=== PATIENT | female | born 1940 | race Caucasian/White ===

== ENCOUNTER 2016-06-25 15:52 | Inpatient (IN) | payer OTHER ==
[~2016-06-25] VITALS: Ht 165.1 cm; Wt 112.6 kg
--- NOTE | ~2016-06-25 | HC ---
[facility] [place] [address] CONSULTATION Name: THADDEUS IYER Room #: 423-1 ADM IN M.R.#: [id number] Admission: 06/25/16 Attend Phys: Cora Lobo MD Discharge: Date of : 44 Report #: [id number] THIS REPORT FOR: //name// CC: BANDAR Dias ADDENDUM: I was able to obtain an echo report, did not see this initially, was obtained here in the hospital. There is moderate aortic valve stenosis that is consistent with the murmur that I heard on physical exam, measuring 1.2 with a peak gradient of 40 and a mean of 26. This would be moderate aortic valve stenosis by definition. Mild diastolic dysfunction. I suspect this also contributes to a mild heart failure, more of a diastolic valvular volume issue here. This valve was not tight enough to entertain nor would she be of a candidate at this point for any valve replacement, but not currently indicated. May try to get more aggressive with the diuresis. We will give one dose of IV Lasix tonight and I continued with the p.o., reevaluate in the a.m. with the chest x-ray. <ELECTRONICALLY SIGNED> By: Tico Gruber MD, [facility] 06/29/16 0815 1845 2356 Tico Gruber MD, FACC /nt
--- NOTE | ~2016-06-25 | EKG ---
[place] [address] [facility] [place] [address] ELECTROCARDIOGRAM REPORT Name: THADDEUS IYER Room #: 423-1 ADM IN M.R.#: [id number] Admission: 06/25/16 Attend Phys: Yury Dias DO Discharge: Date of : 42 Report #: [id number] THIS REPORT FOR: //name// [facility] Test Date: 2016-06-26 Test Time: 07:25:47 Pat Name: THADDEUS IYER Department: Room: [facility] Gender: F Biological Inspector: madhu soni : 1940 Requested By: Esther Ku Order Number: [id number] MD: Edwar Freeman Measurements Intervals [place] Rate: 73 P: 33 [place]: 160 QRS: -5 QRSD: 86 T: 17 QT: 438 QTc: 483 Interpretive Statements Sinus rhythm Nonspecific T wave abnormality Compared to ECG 09/24/2007 01:18:55 Sinus bradycardia no longer present Electronically Signed On 06-26-2016 8:28:09 CDT by Edwar Freeman [email or web address] <ELECTRONICALLY SIGNED> By: Edwar Freeman MD, [facility] 06/26/16 0828 4 4 Edwar Freeman MD, [facility] /EPI
--- NOTE | ~2016-06-25 | S ---
[facility] [place] [address] SURGICAL PATH RPT PROCEDURE Name: THADDEUS HOWELL Room #: 423-1 DIS IN M.R.#: [id number] Admission: 06/25/16 Date of : 44 Discharge: 06/30/16 Report #: [id number] Path Case #: [id number] PATHOLOGY REPORT COLLECTION DATE: 06/30/2016 RECEIVED DATE: 06/30/2016 SUBMITTING PHYS: Dr. Samir Chaidez OTHER PHYS: Dr. Cora Stovall SPECIMEN(S) RECEIVED: A.Duodenal bx B.Distal esophagus bx C.Mid esophagus bx * * * * * * * * * * * * FINAL DIAGNOSIS: A. "Duodenal bx," biopsy: - Small bowel / duodenal mucosa with mild reactive changes including prominent Chance's glands; no evidence of celiac sprue. B. "Distal esophagus bx," biopsy: - Esophageal squamous mucosa with mild reactive changes; no significant inflammation, including eosinophils, present. C. "Mid esophagus bx," biopsy: - Esophageal squamous mucosa with mild reactive changes; no significant inflammation, including eosinophils, present. COMMENT: Clinical and endoscopic correlation is recommended. (KAYYW:; d/t: 07/01/16) PATHOLOGIST: Suri Carty M.D. REPORT ELECTRONICALLY SIGNED BY: Suri Carty M.D. DATE/TIME: 07/01/2016 21:56 * * * * * * * * * * * * GROSS PATHOLOGY: A. Received in formalin labeled "Thaddeus Howell, duodenal biopsy, R/O sprue," are two segments of pacheco soft tissue measuring 0.5 x 0.5 x 0.1 cm in aggregate dimensions and ranging from 0.3 to 0.5 cm in maximum dimension. The specimen is submitted entirely in cassette A1. B. Received in formalin labeled "Thaddeus Howell, distal esophagus, R/O eosinophilic esophagitis," are three segments of pacheco soft tissue measuring 0.8 x 0.7 x 0.1 cm in aggregate dimensions and ranging from 0.3 to 0.4 cm in maximum dimension. The specimen is submitted [address] [address] SURGICAL PATH RPT PROCEDURE Name: THADDEUS HOWELL Room #: 423-1 DIS IN M.R.#: [id number] Admission: 06/25/16 Date of : 44 Discharge: 06/30/16 Report #: [id number] Path Case #: [id number] entirely in cassette B1. C. Received in formalin labeled "Thaddeus Howell, mid esophagus biopsy, R/O eosinophilic esophagitis," are two segments of pacheco soft tissue measuring 0.5 x 0.5 x 0.1 cm in aggregate dimensions and ranging from 0.3 to 0.5 cm in maximum dimension. The specimen is submitted entirely in cassette C1. (CAA; 06/30/2016) CLINICAL HISTORY: Abdominal pain, dysphagia A: R/O sprue B and C: R/O eosinophilic esophagitis INITIAL CPT CODE(S): A; 24645 B; 34232 C; 49408 Professional services performed by [facility] at [facility] [address], [place] [address] Technical services performed by [facility] at [address] [place] [address], [facility] [address], [place] [address]. [facility] [address] [place] [address] PHONE: [phone] DIRECTOR: Félix Bunch M.D. * * * END OF REPORT * * *
--- NOTE | ~2016-06-25 | HC ---
[facility] [place] [address] CONSULTATION Name: THADDEUS IYER Room #: 423-1 ADM IN M.R.#: [id number] Admission: 06/25/16 Attend Phys: Cora Lobo MD Discharge: Date of : 42 Report #: [id number] THIS REPORT FOR: //name// CC: BANDAR Dias HISTORY OF PRESENT ILLNESS: The patient is a 75-year-old female, who I was asked to evaluate for progressive dyspnea, shortness of breath, and edema. Question of heart failure, acute systolic failure. Seen by Dr. Stovall, but no prior cardiac issues. No prior nurse coordinator that she has ever seen. Admitted here with hypertensive issues and had been hospitalized at [place] and then back in the [facility], tried to go home and then apparently did not do well. Progressive hypertension, lower extremity edema, had difficulty ambulating with a walker, some intermittent chills. She had been compliant with the medications is my understanding. Perhaps not as compliant with diet, but I do not have any imaging studies of her cardiac. There has been no echo. In fact, I do not see a chest x-ray currently. Has had this edema and weight gain, however. HOME MEDICATIONS: Appear to have been hydrocodone, baby aspirin, gabapentin, Lasix 40, levothyroxine, insulin, lovastatin 20, metformin 1000 b.i.d., metoprolol 12.5 b.i.d., Protonix, Zofran, losartan 50, Colace, and potassium 10. PAST MEDICAL HISTORY: Positive for hypertension, diabetes for 12 to 15 years, renal insufficiency, chronic edema, arthritis, generalized debilitation with hip, knee, and back pain, tonsillectomy, appendectomy, hernia repair, , parathyroidectomy, left knee surgery, depression. FAMILY HISTORY: Positive for premature coronary artery disease. Two brothers had coronary issues in their 60s. One brother just had stents placed. SOCIAL HISTORY: She is , no current alcohol or tobacco. Was never a smoker. REVIEW OF SYSTEMS: Negative except for stated above with some progressive weakness and arthritic issues. Otherwise negative. Some intermittent bowel constipation issues. LABORATORY DATA: Creatinine 1.6, potassium 4.3, glucose 205, magnesium 1.7, total protein 6.3. BNP 1140. H and H 10.6 and 32.3, white count was 10, sed rate 29, rheumatoid factor negative. PHYSICAL EXAMINATION: GENERAL: She is in no distress. VITAL SIGNS: Blood pressure 160/78, pulse 70s. HEENT: Eyes reveal xanthelasmas. Pharynx is clear. NECK: Shows preserved upstrokes, question of some trace of JVD. LUNGS: Were clear. Diminished at the bases, few fine basilar crackles. [facility] [address] [place] [address] CONSULTATION Name: THADDEUS IYER Room #: 423-1 ADM IN M.R.#: [id number] Admission: 06/25/16 Attend Phys: Cora Lobo MD Discharge: Date of : 42 Report #: [id number] CARDIOVASCULAR: Regular rate and rhythm, S1, S2. There is a faint holosystolic murmur. ABDOMEN: Soft, obese, nontender. EXTREMITIES: Revealed 2+ pedal edema, 1+ in the lower extremities. SKIN: Warm and dry. There are some eczematous changes. I cannot palpate the distal pulses. NEUROLOGIC: Intact. MUSCULOSKELETAL: Valgus deformity of the knee. She does not ambulate. ASSESSMENT: 1. Hypertension, improved. 2. Question of moonn-au-yqqrkih systolic failure, failure possibly mixed, systolic and diastolic. I will obtain echo Doppler. 3. Reflux. 4. Chest pain. 5. Degenerative joint disease, chronic pain. 6. Mild anemia. 7. Chronic kidney disease. RECOMMENDATIONS: I agree with the current p.o. Lasix. We will obtain chest x-ray, echo Doppler. Continue with blood pressure control. However, we will wait for medications currently until I am able to evaluate the echo and valvular status. There is also a murmur of unclear etiology, relative fluid and sodium restriction here, generalized debilitated state seemed to benefited from OT/PT and physical therapy, possibly rehab, but it sounds like she has already had a significant rehabilitation ____ unstable cardiac situation here, but we will obtain echo and chest x-ray in the a.m. and follow up with you. Thank you for asking me to assist in the care of this patient. <ELECTRONICALLY SIGNED> By: Tico Gruber MD, FACC 06/29/16 0815 1841 2356 Tico Gruber MD, FACC /nt
--- NOTE | ~2016-06-25 | 2DMMODE ---
[facility] [address] [place] [address] 2 D/M-MODE ECHOCARDIOGRAM Name: IYERTHADDEUS F Room #: 423-1 ADM IN .R.#: [id number] Admission: 06/25/16 Attend Phys: Yury Dias, Discharge: Date of : 44 Date of Service: 06/26/16 1446 Report #: [id number] THIS REPORT FOR: //name// APPROVED REPORT Study performed: 06/26/2016 09:59:30 EXAM: Comprehensive 2D, Doppler, and color-flow Echocardiogram Patient Location: Bedside Room #: 423 Blood Pressure: 135/67 mmHg HR: 74 bpm Other Information Study Quality: Adequate Indications Congestive Heart Failure Diabetes Hypertension/HDD LE Edema 2D Dimensions LVEF(%): 48.91 (>50%) IVSd: 13.63 (7-11mm) LVOT Diam: 20.00 (18-24mm) LVDd: 49.11 mm PWd: 13.69 (7-11mm) Ascending Aorta: 30.27 mm LVDs: 36.95 (25-40mm) Aortic Root: 30.95 mm Little's LVEF: 48.91 % Volumes Left Atrial Volume (Systole) Single Plane 4CH: 71.84 mL Single Plane 2CH: 59.65 mL LA ESV Index: 35.00 mL/m2 Aortic Valve AoV Peak Rogelio.: 3.20 m/s AO Peak Gr.: 40.92 mmHg LV Max P.46 mmHg AO Mean Gr.: 26.26 mmHg LV Mean P.21 mmHg LV Max: 1.22 m/s AO V2 VTI: 772.73 mm LV Mean: 0.84 m/s XUAN (VTI): 1.20 cm2 LV V1 VTI: 268.28 mm [facility] [place] [address] 2 D/M-MODE ECHOCARDIOGRAM Name: THADDEUS IYER Room #: 423-1 ADM IN M.R.#: [id number] Admission: 06/25/16 Attend Phys: Yury Dias, Discharge: Date of : 42 Date of Service: 06/26/16 1446 Report #: [id number] SV (LVOT): 88.23 mL Mitral Valve E/A Ratio: 0.8 MV Decel. Time: 162.59 ms MV E Max Rogelio.: 0.93 m/s MV A Rogelio.: 1.11 m/s MV PHT: 47.15 ms Pulmonary Valve PV Peak Rogelio.: 1.47 m/s PV Peak Gr.: 8.71 mmHg Pulmonary Vein P Vein S: 49.2 m/s P Vein D: 51.5 m/s P Vein A Dur.: 30.0 m/s PVa Duration: 125 Tricuspid Valve TR Peak Rogelio.: 3.40 m/s RAP Estimate: 10.00 mmHg TR Peak Gr.: 46.00 mmHg PA Pressure: 56.00 mmHg Left Ventricle The left ventricle is normal size. There is normal LV segmental wall motion. Mild to moderate concentric left ventricular hypertrophy. Left ventricular systolic function is normal. The left ventricular ejection fraction is within the normal range. LVEF is 60-65%. Grade I - abnormal relaxation pattern. Right Ventricle The right ventricle is normal size. The right ventricular systolic function is normal. Atria Left atrium is mildly dilated. Right atrium is mildly dilated. Aortic Valve Aortic valve is calcified. Trace aortic regurgitation. Moderate aortic stenosis. Mitral Valve There is mitral annular calcification. Trace mitral regurgitation. No evidence of mitral valve stenosis. Tricuspid Valve [address] [address] 2 D/M-MODE ECHOCARDIOGRAM Name: THADDEUS IYER Room #: 423-1 [facility] IN M.R.#: [id number] Admission: 06/25/16 Attend Phys: Yury Dias, Discharge: Date of : 44 Date of Service: 06/26/16 1446 Report #: [id number] The tricuspid valve is normal in structure. There is no tricuspid valve regurgitation noted. Pulmonic Valve The pulmonary valve is normal in structure. Trace to mild pulmonic regurgitation. Great Vessels The aortic root is normal in size. IVC is dilated and collapses >50% with inspiration. Pericardium There is no pericardial effusion. <Conclusion> The left ventricle is normal size. LVEF is 60-65%. Mild to moderate concentric left ventricular hypertrophy. Left atrium is mildly dilated. Right atrium is mildly dilated. Aortic valve is calcified. Trace aortic regurgitation. Moderate aortic stenosis. There is mitral annular calcification. The tricuspid valve is normal in structure. The pulmonary valve is normal in structure. Trace to mild pulmonic regurgitation. <ELECTRONICALLY SIGNED> By: Po Cooper MD 06/26/16 1446 1446 1446 Po Cooper MD /INF
[2016-06-25 19:00] VITALS: BP 208/119
[2016-06-25 21:09] VITALS: BP 193/90
[2016-06-25] MEDS ORDERED: ASPIRIN EC81 M1 PO (21:17)
[2016-06-25] MEDS ORDERED: HYDROCODONE-APA1 TA1 PO (21:20)
[2016-06-25] MEDS ORDERED: NEURONTIN 300300 M1 PO (21:23)
[2016-06-25] MEDS ORDERED: LASIX 40 MG TAB40 MG PO (21:26)
[2016-06-25] MEDS ORDERED: LEVOTHYROXIN0.075 MG PO (21:26)
[2016-06-26] MEDS ORDERED: LANTUS SUBQ (01:54)
[2016-06-26] MEDS ORDERED: LOVASTATIN 20 M20 MG PO (01:55)
[2016-06-26] MEDS ORDERED: METFORMIN HCL500 MG PO (01:56)
[2016-06-26] MEDS ORDERED: LOPRESSOR25 PO (01:57)
[2016-06-26] MEDS ORDERED: PROTONIX40 M1 PO (01:58)
[2016-06-26] MEDS ORDERED: ONDANSETRON HCL4 M2 PO (01:59)
[2016-06-26] MEDS ORDERED: COZAAR 50 MG TA50 M2 PO (02:00)
[2016-06-26] MEDS ORDERED: COLACE100 MG PO (02:01)
[2016-06-26] MEDS ORDERED: KLOR-CON 1010 MEQ PO (02:02)
[2016-06-26 04:30] VITALS: BP 152/83
[2016-06-26 05:02] LABS: ABSOLUTE NEUTROPHILS 5.5 thou/uL (1.4-8.2); BASOPHILS 0.4 % (0.0-2.0); EOSINOPHILS 3.3 % (0.0-3.0); HEMATOCRIT 32.3 % (37.0-47.0); HEMOGLOBIN 10.6 gm/dL (12.0-15.0); LYMPHOCYTES 34.7 % (24.0-44.0); MCH 27.8 pg (26.0-34.0); MCHC 32.7 g/dL (28.0-37.0); MCV 85.1 fL (80.0-100.0); PLATELET COUNT 252 thou/uL (150-400); POLYS 52.6 % (36.0-66.0); RDW 16.2 % (10.5-14.5); WBC 10.4 thou/uL (4.0-11.0)
[2016-06-26 05:08] LABS: MANUAL DIFF NO
[2016-06-26 05:18] LABS: ALBUMIN 2.7 g/dL (3.4-5.0); CALCIUM 8.3 mg/dL (8.5-10.1); CREATININE 1.5 mg/dL (0.6-1.0); MAGNESIUM 1.7 mg/dL (1.8-2.4); POTASSIUM 3.9 mmol/L (3.5-5.1); TOTAL BILIRUBIN 0.4 mg/dL (<0.1-1.0); TOTAL PROTEIN 6.3 g/dL (6.4-8.2); URIC ACID* 8.7 mg/dL (2.6-7.2)
[2016-06-26 07:27] VITALS: BP 135/67
[2016-06-26 15:05] VITALS: BP 142/52
[2016-06-26 20:00] VITALS: BP 138/64
[2016-06-27 04:00] VITALS: BP 140/54
[2016-06-27 07:28] VITALS: BP 149/71
[2016-06-27 15:08] LABS: CALCIUM 7.8 mg/dL (8.5-10.1); CREATININE 1.6 mg/dL (0.6-1.0); POTASSIUM 4.3 mmol/L (3.5-5.1)
[2016-06-27 15:55] VITALS: BP 159/78
[2016-06-27 21:00] VITALS: BP 152/58
[2016-06-28 04:30] VITALS: BP 149/60
[2016-06-28 06:07] LABS: CALCIUM 8.5 mg/dL (8.5-10.1); CREATININE 1.4 mg/dL (0.6-1.0); POTASSIUM 3.8 mmol/L (3.5-5.1)
[2016-06-28 07:53] VITALS: BP 138/48
[2016-06-28 09:10] LABS: CREATININE (ALB/CR) 39.6 mg/dL (Not Estab.); MICROALB:CREAT 130.8 (0.0-30.0); MICROALBUMIN-RND URINE 51.8 ug/mL (Not Estab.)
[2016-06-28 16:21] VITALS: BP 171/67
[2016-06-28 20:00] VITALS: BP 159/88
[2016-06-29 04:00] VITALS: BP 151/69
[2016-06-29 06:01] LABS: CALCIUM 8.3 mg/dL (8.5-10.1); CREATININE 1.4 mg/dL (0.6-1.0); POTASSIUM 3.9 mmol/L (3.5-5.1)
[2016-06-29 16:21] VITALS: BP 188/74
[2016-06-29 20:00] VITALS: BP 152/65
[2016-06-30 03:47] VITALS: BP 144/56
[2016-06-30 09:30] VITALS: BP 158/103
[2016-06-30 11:20] VITALS: BP 151/67
[2016-06-30 12:07] LABS: GLYCOHEMOGLOBIN (HGB A1C) 7.1 % (4.8-5.6)
[2016-06-30 12:48] VITALS: BP 151/67
[2016-06-30 14:32] VITALS: BP 151/67
== END 2016-06-30 15:50 | disposition home health service (06) | DRG 291 ==
LOC: 4E 15:52
PROVIDERS: Internal Medicine Endocrinology, Diabetes & Metabolism; Nurse Practitioner
PROC: 0D738ZZ Dilation of Lower Esophagus, Via Natural or Artificial Opening Endoscopic (ICD-10-PCS; principal; 2016-06-30)
PROC: 0DB98ZX Excision of Duodenum, Via Natural or Artificial Opening Endoscopic, Diagnostic (ICD-10-PCS; principal; 2016-06-30)
PROC: 0DB38ZX Excision of Lower Esophagus, Via Natural or Artificial Opening Endoscopic, Diagnostic (ICD-10-PCS; principal; 2016-06-30)
PROC: 0DB28ZX Excision of Middle Esophagus, Via Natural or Artificial Opening Endoscopic, Diagnostic (ICD-10-PCS; principal; 2016-06-30)
DX: I13.0 Hypertensive heart and chronic kidney disease with heart failure and stage 1 through stage 4 chronic kidney disease, or unspecified chronic kidney disease (principal); I50.33 Acute on chronic diastolic (congestive) heart failure; E43 Unspecified severe protein-calorie malnutrition; Z68.41 Body mass index [BMI] 40.0-44.9, adult; K21.0 Gastro-esophageal reflux disease with esophagitis; M19.90 Unspecified osteoarthritis, unspecified site; E89.2 Postprocedural hypoparathyroidism; F32.9 Major depressive disorder, single episode, unspecified; D64.9 Anemia, unspecified; N18.9 Chronic kidney disease, unspecified; E11.22 Type 2 diabetes mellitus with diabetic chronic kidney disease; R13.10 Dysphagia, unspecified; I35.0 Nonrheumatic aortic (valve) stenosis; M10.9 Gout, unspecified; E78.5 Hyperlipidemia, unspecified; G89.29 Other chronic pain; M81.0 Age-related osteoporosis without current pathological fracture; E66.9 Obesity, unspecified; Z91.81 History of falling; Z90.49 Acquired absence of other specified parts of digestive tract; Z79.4 Long term (current) use of insulin; Z79.82 Long term (current) use of aspirin; Z79.899 Other long term (current) drug therapy; Z88.6 Allergy status to analgesic agent; Z88.8 Allergy status to other drugs, medicaments and biological substances; Z82.49 Family history of ischemic heart disease and other diseases of the circulatory system
CPT/HCPCS: 10183; 62110; 62900; 70005

== ENCOUNTER 2017-04-07 23:10 | Inpatient (IN) | payer OTHER ==
[~2017-04-07] VITALS: Ht 165.1 cm; Wt 110.7 kg
--- NOTE | ~2017-04-07 | EKG ---
[address] [place] [address] ELECTROCARDIOGRAM REPORT Name: THADDEUS IYER Room #: 432-P ADM IN M.R.#: [id number] Admission: 04/07/17 Attend Phys: Igor Mariee MD Discharge: Date of : 42 Report #: [id number] THIS REPORT FOR: //name// [facility] Test Date: 2017-04-10 Test Time: 07:52:24 Pat Name: HTADDEUS IYER Department: Room: 432 Gender: F Asw Specialist: BALDO : 1940 Requested By: Igor Mariee Order Number: [id number] MD: Edwar Freeman Measurements Intervals [place] Rate: 74 P: 24 [place]: 171 QRS: -13 QRSD: 85 T: 42 QT: 409 QTc: 454 Interpretive Statements Sinus rhythm Nonspecific T wave abnormality Compared to ECG 06/26/2016 07:25:47 No significant change was found Electronically Signed On 04-10-2017 14:40:09 OCCUPATIONAL SAFETY SPECIALIST by Edwar Freeman [email or web address] <ELECTRONICALLY SIGNED> By: Edwar Freeman MD, [facility] 04/10/17 1440 751 1 Edwar Freeman MD, FACC /EPI
--- NOTE | ~2017-04-07 | EKG ---
[address] [address] ELECTROCARDIOGRAM REPORT Name: THADDEUS IYER Room #: 215-P ADM IN M.R.#: [id number] Admission: 04/07/17 Attend Phys: Igor Mariee MD Discharge: Date of : 42 Report #: [id number] THIS REPORT FOR: //name// [facility] Test Date: 2017-04-13 Test Time: 06:34:37 Pat Name: THADDEUS IYER Department: Room: 215 P Gender: F Coordinate Measuring Machine Technician: KVNG : 1940 Requested By: Rishabh Cee Order Number: [id number] MD: Chacho Livingston Measurements Intervals [place] Rate: 67 P: 16 [place]: 178 QRS: -9 QRSD: 85 T: 8 QT: 415 QTc: 438 Interpretive Statements Sinus rhythm Borderline T wave abnormalities Baseline wander in lead(s) V4 Compared to ECG 04/12/2017 14:52:10 T-wave abnormality now present Electronically Signed On 04-13-2017 8:11:21 SECURITY SYSTEMS INTEGRATOR by Chacho Livingston [email or web address] <ELECTRONICALLY SIGNED> By: Chacho Livingston MD 02/08/23 810 3 3 Chacho Livingston MD /BIANCA
--- NOTE | ~2017-04-07 | EKG ---
[address] [place] [address] ELECTROCARDIOGRAM REPORT Name: THADDEUS IYER Room #: 215-P ADM IN M.R.#: [id number] Admission: 04/07/17 Attend Phys: Igor Mariee MD Discharge: Date of : 42 Report #: [id number] THIS REPORT FOR: //name// [facility] Test Date: 2017-04-12 Test Time: 14:52:10 Pat Name: THADDEUS IYER Department: Room: 215 Gender: F Elevator Attendant: POST CATH : 1940 Requested By: Rishabh Cee Order Number: [id number] MD: Chacho Livingston Measurements Intervals [place] Rate: 78 P: 15 NM: 181 QRS: -11 QRSD: 84 T: 54 QT: 387 QTc: 441 Interpretive Statements Sinus rhythm Consider left ventricular hypertrophy Compared to ECG 04/10/2017 07:52:24 T-wave abnormality no longer present Electronically Signed On 04-12-2017 15:47:29 TRAFFIC SIGNAL TECHNICIAN by Chacho Livingston [email or web address] <ELECTRONICALLY SIGNED> By: Chacho Livingston MD 04/12/17 1547 51 145 Chacho Livingston MD /BIANCA
--- NOTE | ~2017-04-07 | CATHLAB ---
[facility] [address] [place] [address] INVASIVE PROCEDURE REPORT Name: THADDEUS IYER Room #: 215-P [facility] IN ..#: [id number] Admission: 04/07/17 Attend Phys: Igor Mariee MD Discharge: Date of : 44 Date of Service: 04/12/17 1445 Report #: [id number] THIS REPORT FOR: //name// APPROVED REPORT Patient Details Patient Status: In-Patient Room #: The patient is a 76 year-old female Event Personnel Rishabh Cee Rubber Press Operator, Nereida, Lani Monitor, Connor Becerra Aloi, Christine Development Representative, Marie, Yasmeen RN RN, Surinder Tenorio collar shaper operator Performed Art Access - R radial artery 65358 Initial Mod Sed Same Phys/QHP Gr5y 623080 54623 Mod Sed Same Phys/QHP Ea 967642 Coronary Angiography Only [id number] CORANG FLOR Place w/wo Plasty Single SAW [id number] Hemostasis with Hemoband Indication Dyspnea, Unstable angina Risk Factors Obesity, Hypercholesterolemia, Hypertension, Diabetes Procedure Narrative The patient was brought urgently to the Cardiac Catheterization Laboratory and was prepped and draped in a sterile manner. The Right Wrist^ was infiltrated with 1% Lidocaine subcutaneous anesthesia. A TRANSRADIAL SLENDER 6F GLIDESHEATH KIT #[id number] sheath was inserted into the Right Radial Artery^. Coronary angiography was performed using coronary diagnostic catheters. The right coronary system was accessed and visualized with a JR 4 catheter. The left coronary system was accessed and visualized with a JL 3.5 catheter. Closure device was deployed with a Fr VASC BAND L 27CM #[id number]. The patient tolerated the procedure well and there were no complications associated with the procedure. There was no hematoma. Intraoperative Conscious Sedation Sedation start time: 12:18 Case end Time: 13:09 Fentanyl 25.0 mcg Versed 1.5 mg Fluoro Time: 13.35 minutes [facility] [address] [place] [address] INVASIVE PROCEDURE REPORT Name: THADDEUS IYER Room #: 215-P [facility] IN .R.#: [id number] Admission: 04/07/17 Attend Phys: Igor Mariee MD Discharge: Date of : 44 Date of Service: 04/12/17 1445 Report #: [id number] Dose: DAP 67710.20 cGycm2 1920 mGy Contrast Type and Amount: Visipaque 200 ml Coronary Angiography The patient's coronary anatomy is right dominant. Diagnostic Cath Left Main Patent vessel, with no flow-limiting lesions. LAD There is mild disease in the mid segment, 30%. Diagonal 1 There is a moderate stenosis in the proximal segment, 50%. Circumflex A small size caliber vessel, with no flow-limiting lesions. Right Coronary Large size caliber vessel, dominant. There is a moderate to severe stenosis in the proximal segment, 60-70%. Recommend medical therapy. R PDA Moderate size caliber vessel, patent with no flow-limiting lesions. RPLV After the bifurcation of the PDA, the distal RCA supplies multiple RPL branches, supplying the inferolateral segment. There is a severe stenosis in the distal RCA just after the takeoff of the PDA. Left Ventriculography Left Ventriculography was not performed. Hemodynamics The aortic pressure is 158/74 mmHg with a mean of 107 mmHg. PCI Technique Lesion Anticoagulation was achieved with Angiomax. Patient was preloaded with Plavix. Percutaneous coronary intervention was performed on the first right posterior lateral segment. The lesion stenosis prior to intervention was 80% with FELA 3 flow. A VISTA 6FR 3DRC #[id number] Guide Catheter was used to engage the ostium. A Luge Wire .014 x 182CM #[id number] Interventional Guidewire was used to cross the lesion. BALLOON DILATION A Balloon catheter Mozec 2.5 x 9 was inserted and inflated up to 10.00atm for 20seconds. STENT DEPLOYMENT A drug-eluting stent RESOLUTE RX 2.75 X 12 #[id number] was inserted and inflated up to 14.00atm for 24seconds. [facility] [address] [place] [address] INVASIVE PROCEDURE REPORT Name: THADDEUS IYER Room #: 215-P [facility] IN .R.#: [id number] Admission: 04/07/17 Attend Phys: Igor Mariee MD Discharge: Date of : 44 Date of Service: 04/12/17 1445 Report #: [id number] POST STENT DEPLOYMENT BALLOON DILATION A Balloon catheter TREK NC RX 3.0 X 8 #[id number] was inserted and inflated up to 18.00atm for 22seconds. Final angiography reveals 0 % stenosis with FELA 3 flow. Conclusion 1. Successful insertion of a drug-eluting stent into the distal RCA stenosis. 2. Moderate to severe discrete stenosis in the proximal RCA. Recommend medical therapy, if symptomatic, consider staged angioplasty. 3. Mild to moderate disease in LAD and diagonal artery. 4. Recommend dual antiplatelet therapy. <ELECTRONICALLY SIGNED> By: Rishabh Cee MD 04/12/17 1445 1445 1445 Rishabh Cee MD /INF
--- NOTE | ~2017-04-07 | 2DMMODE ---
[facility] [address] [place] [address] 2 D/M-MODE ECHOCARDIOGRAM Name: MADI IYERMADHURI Gold Room #: 432-P [facility] IN ..#: [id number] Admission: 04/07/17 Attend Phys: Igor Mariee MD Discharge: Date of : 44 Date of Service: 04/08/17 1303 Report #: [id number] THIS REPORT FOR: //name// APPROVED REPORT Study performed: 04/08/2017 10:43:35 EXAM: Comprehensive 2D, Doppler, and color-flow Echocardiogram Patient Location: Bedside Room #: 432 Status: routine BSA: 2.10 HR: 67 bpm BP: 175/84 mmHg Other Information Study Quality: Adequate Technically limited study due to body habitus, inability to position patient, patient unable to tolerate complete exam, subcostal and suprasternal window not obtained. Indications Congestive Heart Failure Diabetes Chest Pain Hypertension/HDD Hx aortic stenosis 2D Dimensions RVDd: 33.52 mm LVEF(%): 50.28 (>50%) IVSd: 18.73 (7-11mm) LVOT Diam: 22.55 (18-24mm) LVDd: 42.57 mm PWd: 18.55 (7-11mm) Ascending Ao: 30.21 (22-36mm) LVDs: 31.79 (25-40mm) Aortic Root: 28.33 mm Little's LVEF: 50.28 % Volumes Left Atrial Volume (Systole) Single Plane 4CH: 104.54 mL Single Plane 2CH: 57.13 mL LA ESV Index: 39.00 mL/m2 Aortic Valve AoV Peak Rogelio.: 3.47 m/s AO Peak Gr.: 48.23 mmHg LVOT Max P.52 mmHg [facility] [address] [place] [address] 2 D/M-MODE ECHOCARDIOGRAM Name: THADDEUS IYER Room #: 432-P [facility] IN ..#: [id number] Admission: 04/07/17 Attend Phys: Igor Mariee MD Discharge: Date of : 44 Date of Service: 04/08/17 1303 Report #: [id number] AO Mean Gr.: 25.32 mmHg LVOT Mean P.77 mmHg AO V2 Mean: 2.37 m/s LVOT Max V: 0.94 m/s AO V2 VTI: 78.40 cm LVOT Mean V: 0.61 m/s XUAN (VTI): 1.15 cm2 LVOT V1 VTI: 22.50 cm XUAN Vmax: 1.08 cm2 SV (LVOT): 89.79 mL Mitral Valve E/A Ratio: 0.7 MV Decel. Time: 220.52 ms MV E Max Rogelio.: 0.76 m/s MV A Rogelio.: 1.07 m/s MV PHT: 63.95 ms IVRT: 107.27 ms Pulmonary Valve PV Peak Rogelio.: 1.19 m/s PV Peak Gr.: 5.64 mmHg Pulmonary Vein P Vein S: 0.52 m/s P Vein A: 0.24 m/s P Vein D: 0.55 m/s P Vein A Dur.: 162.6 msec P Vein S/D Ratio: 0.95 Left Ventricle The left ventricle is normal size. There is normal LV segmental wall motion. Moderate to severe concentric left ventricular hypertrophy. The left ventricular systolic function is normal. The left ventricular ejection fraction is within the normal range. LVEF is 60%. Mild diastolic dysfunction is present (impaired relaxation pattern). Right Ventricle The right ventricle is normal size. The right ventricular systolic function is normal. Atria The left atrium size is normal. Right atrium is at the upper limits of normal. Aortic Valve Aortic valve is calcified. The aortic valve is mildly calcified The aortic valve is not well visualized.. Mild aortic regurgitation. There is moderate valvular aortic stenosis. Calculated aortic valve area is 1.1 cm2 with maximum pressure gradient of 48 mmHg and mean pressure gradient of [address] [address] 2 D/M-MODE ECHOCARDIOGRAM Name: THADDEUS IYER Room #: 432-P [facility] IN M.R.#: [id number] Admission: 04/07/17 Attend Phys: Igor Mariee MD Discharge: Date of : 44 Date of Service: 04/08/17 1303 Report #: [id number] Mitral Valve The mitral valve is normal in structure. Mild mitral regurgitation. No evidence of mitral valve stenosis. Tricuspid Valve The tricuspid valve is normal in structure. Trace tricuspid regurgitation. Unable to assess PA pressure. Pulmonic Valve Pulmonic valve is not well visualized. Mild pulmonic regurgitation. Great Vessels The aortic root is normal in size. Pericardium There is no pericardial effusion. <Conclusion> The left ventricular systolic function is normal. There is normal LV segmental wall motion. LVEF is 60%. Mild diastolic dysfunction Aortic valve is calcified. The aortic valve is not well visualized. Moderate valvular aortic stenosis. Calculated aortic valve area is 1.1 cm2 with maximum pressure gradient of 48 mmHg and mean pressure gradient of 25 mmHg. The mitral valve is normal in structure. Mild mitral regurgitation. Pulmonary artery pressure could not be reliably ascertained There is no pericardial effusion. <ELECTRONICALLY SIGNED> By: Edwar Freeman MD, FACC 04/08/17 1303 1303 1303 Edwar Freeman MD, FACC /INF
[~2017-04-07 23:10] MED LIST: ASPIRIN EC81 M1 PO; COLACE100 MG PO; COZAAR 50 MG TA50 M2 PO; HYDROCODONE-APA1 TA1 PO; KLOR-CON 1010 MEQ PO; LANTUS SUBQ; LASIX 40 MG TAB40 MG PO; LEVOTHYROXIN0.075 MG PO; LOPRESSOR25 PO; LOVASTATIN 20 M20 MG PO; METFORMIN HCL500 MG PO; NEURONTIN 300300 M1 PO; ONDANSETRON HCL4 M2 PO; PROTONIX40 M1 PO
[2017-04-08] VITALS: BP 182/90
[2017-04-08 00:50] VITALS: BP 181/75
[2017-04-08] MEDS ORDERED: AMLODIPINE BESY10 MG PO (03:50)
[2017-04-08] MEDS ORDERED: OMEPRAZOLE40 MG PO (03:52)
[2017-04-08] MEDS ORDERED: NYAMYC15 GM TOP (03:55)
[2017-04-08] MEDS ORDERED: GLIPIZIDE ER10 MG PO (03:58)
[2017-04-08] MEDS ORDERED: NITROGLYCERIN0.4 MG TRANSDERM (03:59)
[2017-04-08] MEDS ORDERED: BUMETANIDE0.5 MG PO (04:05)
[2017-04-08 05:17] VITALS: BP 155/70
[2017-04-08 05:50] LABS: HEMOGLOBIN 11.1 gm/dL (12.0-15.0); MCHC 32.7 g/dL (28.0-37.0); MCV 85.8 fL (80.0-100.0); RBC 3.96 mil/uL (4.20-5.00); RDW 14.8 % (10.5-14.5); WBC 10.8 thou/uL (4.0-11.0)
[2017-04-08 06:18] LABS: ALBUMIN 2.6 g/dL (3.4-5.0); ANION GAP 7 mmol/L (7-16); BUN 35 mg/dL (7-18); CALCIUM 9.6 mg/dL (8.5-10.1); CHLORIDE 103 mmol/L (98-107); CO2 29 mmol/L (21-32); CREATININE 1.4 mg/dL (0.6-1.0); GLUCOSE 125 mg/dL (74-106); SGOT 14 U/L (15-37); SGPT 12 U/L (30-65); SODIUM 139 mmol/L (136-145); TOTAL BILIRUBIN 0.2 mg/dL (<0.1-1.0); TOTAL PROTEIN 6.2 g/dL (6.4-8.2); TROPONIN-I < 0.04 ng/mL (<0.06)
[2017-04-08 08:34] VITALS: BP 175/84
[2017-04-08 16:30] VITALS: BP 160/70
[2017-04-08 21:00] VITALS: BP 157/65
[2017-04-09 05:34] VITALS: BP 164/85
[2017-04-09 07:59] VITALS: BP 157/71
[2017-04-09 15:13] VITALS: BP 158/73
[2017-04-09 20:01] VITALS: BP 155/58
[2017-04-10 03:15] VITALS: BP 175/78
[2017-04-10 08:00] VITALS: BP 154/59
[2017-04-10 15:30] VITALS: BP 132/47
[2017-04-10 20:08] VITALS: BP 115/38
[2017-04-11 04:56] VITALS: BP 135/56
[2017-04-11 08:25] VITALS: BP 113/56
[2017-04-11 16:24] VITALS: BP 120/45
[2017-04-11 20:55] VITALS: BP 131/47
[2017-04-12 05:40] VITALS: BP 121/50
[2017-04-12 06:28] LABS: HEMATOCRIT 33.3 % (37.0-47.0); HEMOGLOBIN 10.8 gm/dL (12.0-15.0); MCH 28.2 pg (26.0-34.0); MCHC 32.3 g/dL (28.0-37.0); MCV 87.3 fL (80.0-100.0); RBC 3.82 mil/uL (4.20-5.00); RDW 15.4 % (10.5-14.5); WBC 9.6 thou/uL (4.0-11.0)
[2017-04-12 06:43] LABS: CALCIUM 8.3 mg/dL (8.5-10.1); CREATININE 1.6 mg/dL (0.6-1.0); POTASSIUM 4.5 mmol/L (3.5-5.1)
[2017-04-12 08:13] VITALS: BP 135/50
[2017-04-12 13:30] VITALS: BP 159/77
[2017-04-12] MEDS ORDERED: CLOPIDOGREL75 MG PO (16:23)
[2017-04-12 16:30] VITALS: BP 159/66
[2017-04-12 19:12] VITALS: BP 176/81
[2017-04-12 23:32] VITALS: BP 136/50
[2017-04-13 03:40] VITALS: BP 140/61
[2017-04-13 04:34] LABS: HEMATOCRIT 31.8 % (37.0-47.0); HEMOGLOBIN 10.4 gm/dL (12.0-15.0); MCH 28.5 pg (26.0-34.0); MCHC 32.6 g/dL (28.0-37.0); MCV 87.4 fL (80.0-100.0); RBC 3.64 mil/uL (4.20-5.00); RDW 15.6 % (10.5-14.5); WBC 10.4 thou/uL (4.0-11.0)
[2017-04-13 05:00] LABS: CALCIUM 8.2 mg/dL (8.5-10.1); CREATININE 1.4 mg/dL (0.6-1.0); POTASSIUM 4.9 mmol/L (3.5-5.1)
[2017-04-13 05:06] LABS: TROPONIN-I 0.76 ng/mL (<0.06)
[2017-04-13 07:25] VITALS: BP 157/54
[2017-04-13] MEDS ORDERED: COZAAR100 MG PO (11:33)
[2017-04-13 12:20] VITALS: BP 141/65
[2017-04-13 13:27] VITALS: BP 141/65
[2017-04-13 14:30] VITALS: BP 141/65
[2017-04-13 14:31] VITALS: BP 141/65
[2017-09-05] MEDS ORDERED: TORSEMIDE20 MG PO (11:29)
[2017-09-06] MEDS ORDERED: AMLODIPINE BESY10 MG PO (15:21)
== END 2017-04-13 14:40 | disposition home or self-care (01) | DRG 246 ==
LOC: 4E 23:10 → 2N 04-12 13:58 → ENTRNSPT 04-13 14:03 → EDTRNSPTSTS 04-13 14:05 → 2N 04-13 14:40
PROVIDERS: Hospitalist; Internal Medicine Cardiovascular Disease; Nurse Practitioner Family
PROC: B211YZZ Fluoroscopy of Multiple Coronary Arteries using Other Contrast (ICD-10-PCS; principal; 2017-04-12)
PROC: 4A023N7 Measurement of Cardiac Sampling and Pressure, Left Heart, Percutaneous Approach (ICD-10-PCS; principal; 2017-04-12)
PROC: 027034Z Dilation of Coronary Artery, One Artery with Drug-eluting Intraluminal Device, Percutaneous Approach (ICD-10-PCS; principal; 2017-04-12)
DX: I25.10 Atherosclerotic heart disease of native coronary artery without angina pectoris (principal); E43 Unspecified severe protein-calorie malnutrition; I50.30 Unspecified diastolic (congestive) heart failure; E11.9 Type 2 diabetes mellitus without complications; M10.9 Gout, unspecified; M81.0 Age-related osteoporosis without current pathological fracture; I11.0 Hypertensive heart disease with heart failure; M19.90 Unspecified osteoarthritis, unspecified site; F32.9 Major depressive disorder, single episode, unspecified; I35.0 Nonrheumatic aortic (valve) stenosis; Z79.82 Long term (current) use of aspirin; Z88.6 Allergy status to analgesic agent; Z88.8 Allergy status to other drugs, medicaments and biological substances; Z79.4 Long term (current) use of insulin; Z90.49 Acquired absence of other specified parts of digestive tract; Z82.49 Family history of ischemic heart disease and other diseases of the circulatory system; Z80.0 Family history of malignant neoplasm of digestive organs; Z79.899 Other long term (current) drug therapy
CPT/HCPCS: 10081; 10183; 10783

== ENCOUNTER 2017-09-21 20:23 | Inpatient (IN) | payer OTHER ==
[~2017-09-21] VITALS: Ht 165.1 cm; Wt 122.5 kg
--- NOTE | ~2017-09-21 | CATHLAB ---
[facility] [address] [place] [address] INVASIVE PROCEDURE REPORT Name: THADDEUS IYER Room #: 207-P [facility] IN [facility]#: [id number] Admission: 09/21/17 Attend Phys: Clarence Ruiz MD Discharge: Date of : 44 Date of Service: 09/23/17 1630 Report #: [id number] THIS REPORT FOR: //name// APPROVED REPORT Study performed: 09/23/2017 12:22:58 Patient Details Patient Status: In-Patient Room #: The patient is a 76 year-old female Event Personnel Rishabh Cee Rv Detailer, Surinder Tenorio RN, Meg Grey Sandifer, David Monitor Procedures Performed Coronary Angiography Only [id number] CORANG BMS Place w/wo Plasty Single RCA [id number] BMSSINGLE Indication Chest pain Risk Factors Obesity, HypercholesterolemiaPhysical Activity, Coronary Artery DiseaseHypertension Previous Procedures/Diagnoses Previous PCI Procedure Narrative The Right Wrist^ was infiltrated with 1% Lidocaine subcutaneous anesthesia. A TRANSRADIAL SLENDER 6F GLIDESHEATH KIT #[id number] sheath was inserted into the Right Radial Artery^. Coronary angiography was performed using coronary diagnostic catheters. The right coronary system was accessed and visualized with a JR4 catheter. The left coronary system was accessed and visualized with a JL35FR JL 3.5 #[id number] catheter. Closure device was deployed with a Fr VASC BAND L 27CM #[id number]. The patient tolerated the procedure well and there were no complications associated with the procedure. There was no hematoma. Intraoperative Conscious Sedation Sedation start time: 13.19 Case end Time: 14.20 Fentanyl 50 mcg Versed 1.5 mg [facility] [place] [address] INVASIVE PROCEDURE REPORT Name: THADDEUS IYER Room #: 207-P [facility] IN [facility].#: [id number] Admission: 09/21/17 Attend Phys: Clarence Ruiz MD Discharge: Date of : 44 Date of Service: 09/23/17 1630 Report #: [id number] Fluoro Time: 14.21 minutes Dose: DAP 12628.60 cGycm2 1967 mGy Contrast Type and Amount: Visipaque 175 ml Coronary Angiography The patient's coronary anatomy is right dominant. Diagnostic Cath Left Main Patent vessel, with no flow-limiting lesions. LAD There is mild plaquing in the proximal segment. There is mild to moderate diffuse disease in the mid segment, 30-40%. Diagonal 1 Has a 60% stenosis in the proximal segment. Recommend medical therapy. Circumflex Supplies 2 small OM vessels. OM1 Patent, with no flow limiting lesions. Right Coronary Large, dominant vessel supplies the PDA and several posterior lateral branches. There is a mid segment stenosis, 75-80%. R PDA Patent vessel, with no flow-limiting lesions. RPLV There is a stent in the proximal segment, patent with mild restenosis. Supplies several moderate size posterior lateral branches. Left Ventriculography Left Ventriculography was not performed. Hemodynamics The aortic pressure is 154/68 mmHg with a mean of 71 mmHg. PCI Technique Lesion Anticoagulation was achieved with Angiomax. Patient was preloaded with Plavix. Percutaneous coronary intervention was performed on the mid right coronary artery. The lesion stenosis prior to intervention was 80% with FELA 3 flow. A VISTA 6FR JR 4 #[id number] Guide Catheter was used to engage the ostium. A Luge Wire .014 x 182CM #[id number] Interventional Guidewire was used to cross the lesion. BALLOON DILATION A Balloon catheter Euphora RX 3.0 x 10 #[id number] was inserted and inflated up to 8.00atm for 21seconds. Additional Inflation: 12.00atm for 15seconds. STENT DEPLOYMENT A bare metal stent INTEGRITY RX 4.0 X 15 #[id number] was inserted and inflated up to 16.00atm for 33seconds. [facility] [place] [address] INVASIVE PROCEDURE REPORT Name: THADDEUS IYER Room #: 207-P [facility] IN .R.#: [id number] Admission: 09/21/17 Attend Phys: Clarence Ruiz MD Discharge: Date of : 44 Date of Service: 09/23/17 1630 Report #: [id number] Final angiography reveals 5 % stenosis with FELA 3 flow. Conclusion 1. Successful insertion of a bare metal stent into the mid RCA stenosis. 2. Patent stent in the proximal segment of the RPL branch. 3. Mild to moderate disease in the mid LAD. 4. Moderately severe stenosis in the first diagonal artery, recommend medical therapy. 5. Recommend aggressive risk factor management. <ELECTRONICALLY SIGNED> By: Rishabh Cee MD 09/23/171629 29 29 Rishabh Cee MD /INF
--- NOTE | ~2017-09-21 | EKG ---
[address] [place] [address] ELECTROCARDIOGRAM REPORT Name: THADDEUS IYER Room #: 207- ADM IN M.R.#: [id number] Admission: 09/21/17 Attend Phys: Clarence Ruiz MD Discharge: Date of : 44 Report #: [id number] THIS REPORT FOR: //name// 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: Lenin SHEPPARD : 1940 Requested By: Rishabh Cee Order Number: [id number] MD: Edwar Freeman Measurements Intervals [place] Rate: 57 P: 26 NV: 186 QRS: -5 QRSD: 91 T: 19 QT: 443 QTc: 432 Interpretive Statements Sinus rhythm Left ventricular hypertrophy Compared to ECG 09/02/2017 20:00:15 Ventricular premature complex(es) no longer present Electronically Signed On 09-24-2017 8:49:12 CDT by Edwar Freeman [email or web address] <ELECTRONICALLY SIGNED> By: Edwar Freeman MD, [facility] 09/24/17 0849 1450 49 Edwar Freeman MD, [facility] /EPI
--- NOTE | ~2017-09-21 | EKG ---
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: KVNG : 1940 Requested By: Rishabh Cee Order Number: [id number] MD: Edwar Freeman Measurements Intervals [place] Rate: 65 P: 25 UT: 184 QRS: -14 QRSD: 90 T: 20 QT: 427 QTc: 444 Interpretive Statements Sinus rhythm Left ventricular hypertrophy Baseline wander in lead(s) V2 Compared to ECG 09/02/2017 20:00:15 Premature ventricular complexes now present Electronically Signed On 09-24-2017 8:52:49 CDT by Edwar Freeman [email or web address] <ELECTRONICALLY SIGNED> By: Edwar Freeman MD, [facility] 09/24/17 0852 6 6 Edwar Freeman MD, [facility] /EPI
[~2017-09-21 20:23] MED LIST changes: +AMLODIPINE BESY10 MG PO; +BUMETANIDE0.5 MG PO; +CLOPIDOGREL75 MG PO; +COZAAR100 MG PO; +GLIPIZIDE ER10 MG PO; +NITROGLYCERIN0.4 MG TRANSDERM; +NYAMYC15 GM TOP; +OMEPRAZOLE40 MG PO; +TORSEMIDE20 MG PO
[2017-09-22 00:35] VITALS: BP 182/84
[2017-09-22 01:03] LABS: HEMATOCRIT 31.2 % (37.0-47.0); MCH 25.8 pg (26.0-34.0); MCHC 32.2 g/dL (28.0-37.0); MCV 80.3 fL (80.0-100.0); RBC 3.88 mil/uL (4.20-5.00); RDW 17.6 % (10.5-14.5); WBC 11.5 thou/uL (4.0-11.0)
[2017-09-22 01:18] LABS: CALCIUM 9.9 mg/dL (8.5-10.1); CREATININE 1.5 mg/dL (0.6-1.0); POTASSIUM 4.2 mmol/L (3.5-5.1); TOTAL BILIRUBIN 0.3 mg/dL (<0.1-1.0); TOTAL PROTEIN 6.5 g/dL (6.4-8.2)
[2017-09-22 06:13] VITALS: BP 134/51
[2017-09-22 07:29] VITALS: BP 155/69
[2017-09-22 11:21] VITALS: BP 154/72
[2017-09-22 15:28] VITALS: BP 128/47
[2017-09-22 22:14] VITALS: BP 141/57
[2017-09-23 00:01] LABS: URINE BILIRUBIN NEGATIVE (Negative); URINE BLOOD NEGATIVE (Negative); URINE CLARITY CLEAR; URINE COLOR YELLOW; URINE GLUCOSE-RANDOM* NEGATIVE (Negative); URINE KETONES NEGATIVE (Negative); URINE LEUKOCYTES-REFLEX NEGATIVE (Negative); URINE NITRITE-REFLEX NEGATIVE (Negative); URINE PROTEIN (DIPSTICK) NEGATIVE (Negative); URINE UROBILINOGEN 0.2 E.U./dl (0.2-1.0)
[2017-09-23 04:45] VITALS: BP 145/67
[2017-09-23 04:46] LABS: CALCIUM 9.2 mg/dL (8.5-10.1); CREATININE 1.7 mg/dL (0.6-1.0); MAGNESIUM 1.6 mg/dL (1.8-2.4); POTASSIUM 4.2 mmol/L (3.5-5.1)
[2017-09-23 05:07] LABS: HEMATOCRIT 30.1 % (37.0-47.0); HEMOGLOBIN 9.5 gm/dL (12.0-15.0); MCHC 31.6 g/dL (28.0-37.0); MCV 82.2 fL (80.0-100.0); RBC 3.66 mil/uL (4.20-5.00); RDW 17.8 % (10.5-14.5)
[2017-09-23 05:15] LABS: TSH 3.45 uIU/mL (0.358-3.740)
[2017-09-23 08:15] VITALS: BP 149/71
[2017-09-23 11:50] VITALS: BP 153/63
[2017-09-23 15:05] VITALS: BP 137/57
[2017-09-23 19:30] VITALS: BP 152/70
[2017-09-23 23:31] VITALS: BP 124/56
[2017-09-24 03:42] VITALS: BP 124/55
[2017-09-24 04:02] LABS: HEMATOCRIT 33.6 % (37.0-47.0); HEMOGLOBIN 10.6 gm/dL (12.0-15.0); MCH 25.8 pg (26.0-34.0); MCHC 31.6 g/dL (28.0-37.0); MCV 81.6 fL (80.0-100.0); RBC 4.11 mil/uL (4.20-5.00); RDW 17.5 % (10.5-14.5); WBC 11.6 thou/uL (4.0-11.0)
[2017-09-24 04:03] LABS: ALBUMIN 2.9 g/dL (3.4-5.0); CALCIUM 9.1 mg/dL (8.5-10.1); CREATININE 1.8 mg/dL (0.6-1.0); POTASSIUM 3.7 mmol/L (3.5-5.1); TOTAL BILIRUBIN 0.3 mg/dL (<0.1-1.0); TOTAL PROTEIN 7.1 g/dL (6.4-8.2)
[2017-09-24 07:30] VITALS: BP 143/54
[2017-09-24 11:30] VITALS: BP 116/48
[2017-09-24 11:57] VITALS: BP 143/54
[2017-09-24 15:37] VITALS: BP 143/54
[2017-09-24 17:02] VITALS: BP 143/54
== END 2017-09-24 17:15 | disposition home health service (06) | DRG 248 ==
LOC: 2N 20:23 → ENTRNSPT 09-24 16:51 → 2N 09-24 17:15
PROVIDERS: Hospitalist; Internal Medicine Cardiovascular Disease; Nurse Practitioner Family
PROC: 02703DZ Dilation of Coronary Artery, One Artery with Intraluminal Device, Percutaneous Approach (ICD-10-PCS; principal; 2017-09-23)
PROC: B211YZZ Fluoroscopy of Multiple Coronary Arteries using Other Contrast (ICD-10-PCS; principal; 2017-09-23)
DX: I25.10 Atherosclerotic heart disease of native coronary artery without angina pectoris (principal); N17.0 Acute kidney failure with tubular necrosis; I50.30 Unspecified diastolic (congestive) heart failure; I24.9 Acute ischemic heart disease, unspecified; Z68.41 Body mass index [BMI] 40.0-44.9, adult; I13.0 Hypertensive heart and chronic kidney disease with heart failure and stage 1 through stage 4 chronic kidney disease, or unspecified chronic kidney disease; N18.9 Chronic kidney disease, unspecified; M10.9 Gout, unspecified; M81.0 Age-related osteoporosis without current pathological fracture; M19.90 Unspecified osteoarthritis, unspecified site; E89.0 Postprocedural hypothyroidism; F32.9 Major depressive disorder, single episode, unspecified; E78.5 Hyperlipidemia, unspecified; E11.22 Type 2 diabetes mellitus with diabetic chronic kidney disease; I35.0 Nonrheumatic aortic (valve) stenosis; D72.829 Elevated white blood cell count, unspecified; M62.84 Sarcopenia; R60.9 Edema, unspecified; E66.01 Morbid (severe) obesity due to excess calories; Z71.3 Dietary counseling and surveillance; Z79.4 Long term (current) use of insulin; Z88.6 Allergy status to analgesic agent; Z88.8 Allergy status to other drugs, medicaments and biological substances; Z90.49 Acquired absence of other specified parts of digestive tract; Z95.5 Presence of coronary angioplasty implant and graft; Z82.49 Family history of ischemic heart disease and other diseases of the circulatory system; Z79.82 Long term (current) use of aspirin; Z79.899 Other long term (current) drug therapy
CPT/HCPCS: 10081